=== PATIENT | male | born 1955 | race Caucasian/White ===

== ENCOUNTER 2016-12-30 12:06 | Emergency (ER) | payer BC ==
[2016-12-30 12:20] VITALS: TEMP 99.7
[2016-12-30] MEDS ORDERED: IPRATROPIUM-ALBUTEROL 3 ML NEB INHALATION STA (12:33)
[2016-12-30] MEDS ORDERED: SODIUM CHLORIDE 0.9% 500 ML IV STA (12:33)
[2016-12-30] MEDS ORDERED: SODIUM CHLORIDE 0.9% 1,000 ML IV STA (12:33)
--- NOTE | 2016-12-30 12:47 | ED ---
General Adult HPI - General Chief complaint: Shortness of Breath Stated complaint: SOB Time Seen by Provider: 12/30/16 12:31 Source: patient, RN notes reviewed, old records reviewed Mode of arrival: ambulatory Limitations: no limitations - History of Present Illness Initial comments: This is this is a 61-year-old male with a ER for evaluation, this patient presents for evaluation of cough and congestion. History of asthma. Patient has no exacerbation of asthma for about couple years now. Denies history of smoking no fevers, patient is states he has exertional shortness of breath going on for about 3 days. The patient symptoms are progressive, no breathing treatments at home, no medications at home. Patient seems to be worse when the weather changes. But denies any chest pain. No recent travel history or sick contacts, no recent hospitalizations. - Related Data Home Medications Medication Instructions Recorded Confirmed Aspirin 81 mg PO DAILY 04/17/14 12/30/16 Atorvastatin [Lipitor] 10 mg PO DAILY 04/17/14 12/30/16 Nebivolol HCl [Bystolic] 10 mg PO DAILY 04/17/14 12/30/16 amLODIPine BESYLATE/BENAZEPRIL 1 cap PO DAILY 04/17/14 12/30/16 [Lotrel 5-20 mg Capsule] Previous Rx's Medication Instructions Recorded Albuterol Sulfate [Proair Hfa] 1 - 2 puff INHALATION Q4H PRN #1 12/30/16 inhaler Azithromycin [Zithromax Z-pack] 0 mg PO DIRECTED #1 pack 12/30/16 predniSONE 50 mg PO DAILY #5 tab 12/30/16 Allergies Allergy/AdvReac Type Severity Reaction Status Date / Time No Known Allergies Allergy Verified 12/30/16 13:55 Review of Systems ROS Statement: Those systems with pertinent positive or pertinent negative responses have been documented in the HPI. ROS Other: All systems not noted in ROS Statement are negative. Past Medical History Past Medical History: Asthma, GERD/Reflux, Hyperlipidemia, Hypertension History of Any Multi-Drug Resistant Organisms: None Reported Past Surgical History: Heart Catheterization Additional Past Surgical History / Comment(s): colonoscopy,bronchoscopy Past Anesthesia/Blood Transfusion Reactions: Motion Sickness Past Psychological History: No Psychological Hx Reported Smoking Status: Never smoker Past Alcohol Use History: None Reported Past Drug Use History: None Reported - Past Family History Mother Family Medical History: Cancer Additional Family Medical History / Comment(s): bowel General Exam Limitations: no limitations General appearance: alert, in no apparent distress Head exam: Present: atraumatic, normocephalic, normal inspection Eye exam: Present: normal appearance, PERRL, EOMI. Absent: scleral icterus, conjunctival injection, periorbital swelling ENT exam: Present: normal exam, mucous membranes moist Neck exam: Present: normal inspection. Absent: tenderness, meningismus, lymphadenopathy Respiratory exam: Present: normal lung sounds bilaterally, wheezes, decreased breath sounds. Absent: respiratory distress, rales, rhonchi, stridor Cardiovascular Exam: Present: regular rate, normal rhythm, normal heart sounds. Absent: systolic murmur, diastolic murmur, rubs, gallop, clicks GI/Abdominal exam: Present: soft, normal bowel sounds. Absent: distended, tenderness, guarding, rebound, rigid Extremities exam: Present: normal inspection, full ROM, normal capillary refill. Absent: tenderness, pedal edema, joint swelling, calf tenderness Back exam: Present: normal inspection Neurological exam: Present: alert, oriented X3, CN II-XII intact Psychiatric exam: Present: normal affect, normal mood Skin exam: Present: warm, dry, intact, normal color. Absent: rash Course Vital Signs 12/30/16 12/30/16 12:17 13:43 Temperature 99.7 F H Pulse Rate 79 75 Respiratory 20 16 Rate Blood Pressure 176/83 159/87 O2 Sat by Pulse 99 100 Oximetry - Reevaluation(s) Reevaluation #1: 12/30/16 14:00 At this time patient does appear to have much improved breathing, no distress Reevaluation #2: 12/30/16 14:01 Patient able able to ambulate without shortness of breath EKG Findings - EKG Comments: EKG Findings:: EKG shows normal sinus rhythm rate of 76, SC 132, QRS 88, QTC 447 Medical Decision Making - Medical Decision Making 61 year with asthma exacerbation, no distress, pulse ox normal able any pulse ox is normal chest x-ray is normal patient can be discharged home - Lab Data Result diagrams: 12/30/16 13:00 12/30/16 13:00 Lab Results 12/30/16 12/30/16 12/30/16 Range/Units 13:00 13:00 13:00 WBC 7.8 (3.8-10.6) k/uL RBC 5.61 (4.30-5.90) m/uL Hgb 16.5 (13.0-17.5) gm/dL Hct 48.8 (39.0-53.0) % MCV 87.0 (80.0-100.0) fL MCH 29.5 (25.0-35.0) pg MCHC 33.9 (31.0-37.0) g/dL RDW 13.3 (11.5-15.5) % Plt Count 309 (150-450) k/uL Neutrophils % 77 % Lymphocytes % 15 % Monocytes % 5 % Eosinophils % 1 % Basophils % 1 % Neutrophils # 5.9 (1.3-7.7) k/uL Lymphocytes # 1.2 (1.0-4.8) k/uL Monocytes # 0.4 (0-1.0) k/uL Eosinophils # 0.1 (0-0.7) k/uL Basophils # 0.1 (0-0.2) k/uL PT (9.0-12.0) sec INR (<1.1) APTT (22.0-30.0) sec D-Dimer (<0.60) mg/L FEU Sodium 144 (137-145) mmol/L Potassium 4.9 (3.5-5.1) mmol/L Chloride 107 (98-107) mmol/L Carbon Dioxide 25 (22-30) mmol/L Anion Gap 12 mmol/L BUN 13 (9-20) mg/dL Creatinine 1.02 (0.66-1.25) mg/dL Est GFR (MDRD) Af Amer >60 (>60 ml/min/1.73 sqM) Est GFR (MDRD) Non-Af >60 (>60 ml/min/1.73 sqM) Glucose 100 H (74-99) mg/dL Calcium 9.8 (8.4-10.2) mg/dL Magnesium 2.0 (1.6-2.3) mg/dL Total Bilirubin 1.1 (0.2-1.3) mg/dL AST 33 (17-59) U/L ALT 42 (21-72) U/L Alkaline Phosphatase 69 (38-126) U/L Total Creatine Kinase 58 (55-170) U/L NT-Pro-B Natriuret Pep pg/mL Total Protein 7.4 (6.3-8.2) g/dL Albumin 4.6 (3.5-5.0) g/dL 12/30/16 12/30/16 Range/Units 13:00 13:00 WBC (3.8-10.6) k/uL RBC (4.30-5.90) m/uL Hgb (13.0-17.5) gm/dL Hct (39.0-53.0) % MCV (80.0-100.0) fL MCH (25.0-35.0) pg MCHC (31.0-37.0) g/dL RDW (11.5-15.5) % Plt Count (150-450) k/uL Neutrophils % % Lymphocytes % % Monocytes % % Eosinophils % % Basophils % % Neutrophils # (1.3-7.7) k/uL Lymphocytes # (1.0-4.8) k/uL Monocytes # (0-1.0) k/uL Eosinophils # (0-0.7) k/uL Basophils # (0-0.2) k/uL PT 10.3 (9.0-12.0) sec INR 1.0 (<1.1) APTT 24.8 (22.0-30.0) sec D-Dimer 0.32 (<0.60) mg/L FEU Sodium (137-145) mmol/L Potassium (3.5-5.1) mmol/L Chloride (98-107) mmol/L Carbon Dioxide (22-30) mmol/L Anion Gap mmol/L BUN (9-20) mg/dL Creatinine (0.66-1.25) mg/dL Est GFR (MDRD) Af Amer (>60 ml/min/1.73 sqM) Est GFR (MDRD) Non-Af (>60 ml/min/1.73 sqM) Glucose (74-99) mg/dL Calcium (8.4-10.2) mg/dL Magnesium (1.6-2.3) mg/dL Total Bilirubin (0.2-1.3) mg/dL AST (17-59) U/L ALT (21-72) U/L Alkaline Phosphatase (38-126) U/L Total Creatine Kinase (55-170) U/L NT-Pro-B Natriuret Pep 89 pg/mL Total Protein (6.3-8.2) g/dL Albumin (3.5-5.0) g/dL - Radiology Data Radiology results: report reviewed (Chest x-ray two-view is negative for acute disease), image reviewed Disposition Clinical Impression: Asthma with exacerbation Disposition: HOME SELF-CARE Condition: Good Instructions: Asthma (ED), Acute Bronchitis (ED) Prescriptions: Albuterol Sulfate [Proair Hfa] 1 - 2 puff INHALATION Q4H PRN #1 inhaler PRN Reason: Shortness Of Breath Azithromycin [Zithromax Z-pack] 0 mg PO DIRECTED #1 pack predniSONE 50 mg PO DAILY #5 tab Referrals: Zackery Brennan MD [Primary Care Provider] - 1-2 days
[2016-12-30 12:58] VITALS: RESP 16
[2016-12-30 13:16] LABS: Basophils # (A) 0.1 k/uL (0-0.2); Basophils % (A) 1 %; CH 30.1; CHCM 34.7; Eosinophils # (A) 0.1 k/uL (0-0.7); Eosinophils % (A) 1 %; HCT 48.8 % (39.0-53.0); HDW 2.74; HGB 16.5 gm/dL (13.0-17.5); Luc # (Auto) 0.14; Luc % (Auto) 2; Lymphocytes # (A) 1.2 k/uL (1.0-4.8); Lymphocytes % (A) 15 %; MCH 29.5 pg (25.0-35.0); MCHC 33.9 g/dL (31.0-37.0); Mean Platelet Volume 6.5; Monocytes # (A) 0.4 k/uL (0-1.0); Monocytes % (A) 5 %; Neutrophils # (A) 5.9 k/uL (1.3-7.7); Neutrophils % (A) 77 %; RBC 5.61 m/uL (4.30-5.90); RDW 13.3 % (11.5-15.5); WBC 7.8 k/uL (3.8-10.6); WBC (Perox) 7.72
--- NOTE | 2016-12-30 13:21 | XR ---
EXAMINATION TYPE: XR chest 2V DATE OF EXAM: 12/30/2016 1:18 PM COMPARISON: None HISTORY: 61-year-old male difficulty breathing TECHNIQUE: PA and lateral views FINDINGS: The cardiomediastinal silhouette, aorta, and pulmonary vasculature are within normal limits. Lungs an d pleural spaces are clear. IMPRESSION: No acute cardiopulmonary process.
[2016-12-30 13:25] LABS: ALT 42 U/L (21-72); AST 33 U/L (17-59); Alkaline Phosphatase 69 U/L (38-126); Anion Gap 12 mmol/L; Blood Urea Nitrogen 13 mg/dL (9-20); Calcium 9.8 mg/dL (8.4-10.2); Carbon Dioxide 25 mmol/L (22-30); Chloride 107 mmol/L (98-107); Glucose 100 mg/dL (74-99); Non-African American GFR(MDRD) >60 (>60 ml/min/1.73 sqM); Sodium 144 mmol/L (137-145); Total Bilirubin 1.1 mg/dL (0.2-1.3); Total Protein 7.4 g/dL (6.3-8.2)
[2016-12-30 13:42] LABS: Creatine Kinase 58 U/L (55-170)
[2016-12-30 13:46] LABS: Potassium 4.9 mmol/L (3.5-5.1)
[2016-12-30 13:50] LABS: Partial Thromboplastin Time 24.8 sec (22.0-30.0); Prothrombin Time 10.3 sec (9.0-12.0)
[2016-12-30 13:56] LABS: Creatine Kinase MB 0.5 ng/mL (0.0-2.4); Troponin I <0.012 ng/mL (0.000-0.034)
[2016-12-30] MEDS ORDERED: methylPREDNISolone SOD SUCCI 125 MG/2 ML VIAL IV STA (13:59)
[2016-12-30 14:07] VITALS: BP 147/71
[2016-12-30 14:16] VITALS: PULSE 72
== END 2016-12-30 14:27 | disposition home or self-care (01) ==
LOC: EC 12:06
DX: J45.901 Unspecified asthma with (acute) exacerbation (principal); K21.9 Gastro-esophageal reflux disease without esophagitis; E78.5 Hyperlipidemia, unspecified; I10 Essential (primary) hypertension; Z79.82 Long term (current) use of aspirin; Z79.899 Other long term (current) drug therapy
CPT/HCPCS: 36415; 94640; 93005; 85379; 83880; 80053; 82550; 82553; 83735; 84484; 85025; 85610; 85730; 71020; 99285; 96374; 96361; J2930

== ENCOUNTER → 2017-02-03 | Outpatient (CLI) | payer BC ==
--- NOTE | 2017-02-03 11:31 | CT ---
EXAMINATION TYPE: CT abdomen pelvis w con DATE OF EXAM: 02/03/2017 7:29 AM COMPARISON: NONE HISTORY: constipation, lower abd pain, fatigue CT DLP: 691 mGycm, Automated Exposure Control for Dose Reduction was Utilized. CONTRAST: CT scan of the abdomen and pelvis is performed with oral and with IV Contrast, patient injected with 100 mL of Omnipaque 300. FINDINGS: LUNG BASES: No significant abnormality is appreciated. LIVER/GB: No significant abnormality is appreciated. PANCREAS: No significant abnormality is seen. SPLEEN: No significant abnormality is seen. ADRENALS: No significant abnormality is seen. KIDNEYS: No significant abnormality is seen. BOWEL: Oral contrast reaches level of the left colon. Evaluation of distal colon is suboptimal. There is no suspicious small or large bowel dilatation seen. Normal appearing appendix is seen from cecum. There are some sigmoid colonic diverticula. There is no CT evidence for acute diverticulitis. PROSTATE/SEMINAL VESICLES: Prostate gland is heterogeneous in appearance and upper limits of normal i n size. LYMPH NODES: No greater than 1cm abdominal or pelvic lymph nodes are appreciated. OSSEOUS STRUCTURES: There is multilevel facet arthropathy in the lower lumbar spine. There is disc sp joelle narrowing with vacuum disc phenomenon L3-L4 and L4-L5 levels. OTHER: There is mild calcified atherosclerotic change of aorta and pelvic branch vessels. IMPRESSION: No bowel obstruction is seen. No significant acute finding is seen to account for patient 's clinical symptoms.
== END | disposition home or self-care (01) ==
LOC: RADCTMAIN 07:06
PROVIDERS: ATTEND Internal Medicine
DX: R10.33 Periumbilical pain (principal)
CPT/HCPCS: 74177; Q9967

== ENCOUNTER → 2017-12-07 | Outpatient (CLI) | payer BC ==
[2017-12-07 15:11] LABS: Blood Urea Nitrogen 14 mg/dL (9-20)
== END | disposition home or self-care (01) ==
LOC: LABWHC1 14:47
PROVIDERS: ATTEND Urology
DX: C61 Malignant neoplasm of prostate (principal)
CPT/HCPCS: 36415; 82565; 84520

== ENCOUNTER 2017-12-13 02:12 | Emergency (ER) | payer BC ==
[2017-12-13 02:23] VITALS: RESP 16; TEMP 97.6
[2017-12-13] MEDS ORDERED: cloNIDine HCL 0.1 MG TAB PO STA (02:52)
--- NOTE | 2017-12-13 03:04 | ED ---
Recheck HPI - General Chief Complaint: Recheck/Abnormal Lab/Rx Stated Complaint: Hypertension/SOB Time Seen by Provider: 12/13/17 02:30 Source: patient, RN notes reviewed Mode of arrival: ambulatory Limitations: no limitations - History of Present Illness Initial Comments: This is a 62-year-old male who presents to the emergency department with chief complaint of hypertension. Patient states that around 10:30 PM he began to feel clammy and felt like his blood pressure was elevated. He states that he took his blood pressure and that it was elevated. He states that he does see Dr. Brennan and recently his diastolic was increased to 10 mg twice per day. Patient states that he did feel some ringing in his ears earlier this evening. He denies any symptoms such as chest pain, shortness of breath, abdominal pain, nausea or vomiting, dizziness or headache. Patient does state that earlier he was feeling a bit short of breath that he is asthmatic and that this happens regularly. On presentation to the emergency department, patient's blood pressure is 170/79 and he denies any symptoms. - Related Data Home Medications Medication Instructions Recorded Confirmed Aspirin 81 mg PO DAILY 04/17/14 12/30/16 Atorvastatin [Lipitor] 10 mg PO DAILY 04/17/14 12/30/16 Nebivolol HCl [Bystolic] 10 mg PO DAILY 04/17/14 12/30/16 amLODIPine BESYLATE/BENAZEPRIL 1 cap PO DAILY 04/17/14 12/30/16 [Lotrel 5-20 mg Capsule] Previous Rx's Medication Instructions Recorded Albuterol Sulfate [Proair Hfa] 1 - 2 puff INHALATION Q4H PRN #1 12/30/16 inhaler Azithromycin [Zithromax Z-pack] 0 mg PO DIRECTED #1 pack 12/30/16 predniSONE 50 mg PO DAILY #5 tab 12/30/16 Allergies Allergy/AdvReac Type Severity Reaction Status Date / Time No Known Allergies Allergy Verified 12/30/16 13:55 Review of Systems ROS Statement: Those systems with pertinent positive or pertinent negative responses have been documented in the HPI. ROS Other: All systems not noted in ROS Statement are negative. Past Medical History Past Medical History: Asthma, Cancer, GERD/Reflux, Hyperlipidemia, Hypertension Additional Past Medical History / Comment(s): prostate cancer History of Any Multi-Drug Resistant Organisms: None Reported Past Surgical History: Heart Catheterization Additional Past Surgical History / Comment(s): colonoscopy,bronchoscopy Past Anesthesia/Blood Transfusion Reactions: Motion Sickness Past Psychological History: No Psychological Hx Reported Smoking Status: Never smoker Past Alcohol Use History: Occasional Past Drug Use History: None Reported - Past Family History Mother Family Medical History: Cancer Additional Family Medical History / Comment(s): bowel General Exam - General Exam Comments Initial Comments: General: Awake and alert, well-developed; in no apparent distress. Lying comfortably on ED stretcher. HEENT: Head atraumatic, normocephalic. Pupils are equal, round and reactive to light. Extraocular movements intact. Oropharynx moist without erythema or exudate. Neck: Supple. Normal ROM. Cardiovascular: Regular rate and rhythm. No murmurs, rubs or gallops. Chest symmetrical. Respiratory: Lungs clear to auscultation bilaterally. No wheezes, rales or rhonchi. Normal respiratory effort with no use of accessory muscles. Musculoskeletal: Normal ROM, no tenderness bilateral upper and lower extremities. Ambulating normally. Skin: [place], warm and dry without rashes or lesions. Neurological: Alert and oriented x3. CN II-XII grossly intact. Speech is fluent and answers are appropriate. No focal neuro deficits. Psychiatric: Normal mood and affect. No overt signs of depression or anxiety noted. Limitations: no limitations Course Vital Signs 12/13/17 12/13/17 12/13/17 02:20 03:05 03:31 Temperature 97.6 F Pulse Rate 79 71 Respiratory 16 16 Rate Blood Pressure 170/79 152/71 130/62 O2 Sat by Pulse 98 98 Oximetry Medical Decision Making - Medical Decision Making This is a 62-year-old male who presents to the emergency department with chief complaint of hypertension. Patient denies any shortness of breath or chest pain. Denies any dizziness or headache. EKG revealed a normal sinus rhythm with no evidence for ischemia. On presentation, patient's blood pressure was 170/79. He was given Catapres. Blood pressure was brought down to 130/62. Patient states that he is feeling well and has no complaints. This case was discussed with attending physician, Dr. Rae who was in contact with patient's primary care provider Dr. Brennan. Patient is in no acute distress and will be discharged home. He is to follow-up with Dr. Brennan within 1-2 days. He is in agreement and voices understanding. All questions were answered. - EKG Data EKG Comments: EKG at 3:05:29. Normal sinus rhythm. Ventricular rate 73 bpm, HI interval 180 , QRS duration 102, QT/QTC 384/423. No evidence of ST segment elevation or depression. Disposition Clinical Impression: Hypertension Disposition: HOME SELF-CARE Condition: Good Instructions: Hypertension (ED) Additional Instructions: Please follow up with primary care provider within 1-2 days. Return to emergency department if symptoms should worsen or any concerns arise. Referrals: Zackery Brennan MD [Primary Care Provider] - 1-2 days Time of Disposition: 03:48
[2017-12-13 03:06] VITALS: PULSE 71
[2017-12-13 03:31] VITALS: BP 130/62
== END 2017-12-13 03:56 | disposition home or self-care (01) ==
LOC: EC 02:12
DX: I10 Essential (primary) hypertension (principal); J45.909 Unspecified asthma, uncomplicated; E78.5 Hyperlipidemia, unspecified; Z85.46 Personal history of malignant neoplasm of prostate; Z95.5 Presence of coronary angioplasty implant and graft; Z79.82 Long term (current) use of aspirin; Z79.899 Other long term (current) drug therapy
CPT/HCPCS: 93005; 99283

== ENCOUNTER → 2018-03-01 | Outpatient (CLI) | payer BC ==
--- NOTE | 2018-03-01 12:50 | FL ---
EXAMINATION: Cervical and Thoracic Esophagram DATE OF EXAM: 03/01/2018 CLINICAL INDICATION: 62-year-old male dysphasia, sensation of food intermittently sticking in the thr oat. COMPARISON: None Total Fluoroscopy Time: 123 seconds Total images: 34 FINDINGS: The swallowing mechanism is normal and hypopharyngeal anatomy is preserved. The cervical and thoracic portions have a normal course and caliber and normal motility. The mucosa is normal and no persistent filling defect is encountered. There is a small sliding hiatal hernia. Spontaneous gastroesophageal reflux is noted, severe in degree, extending to the level of the thoraci c inlet while the patient turns from a left-sided decubitus to a supine position. IMPRESSION: Small sliding hiatal hernia with spontaneous severe gastroesophageal reflux to the level of the thora cic inlet.
== END | disposition home or self-care (01) ==
LOC: RADFLMAIN 08:49
PROVIDERS: ATTEND Otolaryngology
DX: K44.9 Diaphragmatic hernia without obstruction or gangrene (principal); K21.9 Gastro-esophageal reflux disease without esophagitis
CPT/HCPCS: 74220

== ENCOUNTER → 2019-09-06 | Outpatient (CLI) | payer BC ==
[2019-09-06 11:14] LABS: Basophils # (A) 0.1 k/uL (0-0.2); Basophils % (A) 1 %; Eosinophils # (A) 0.1 k/uL (0-0.7); Eosinophils % (A) 2 %; Lymphocytes % (A) 17 %; MCH 29.9 pg (25.0-35.0); MCHC 34.1 g/dL (31.0-37.0); MCV 87.8 fL (80.0-100.0); Mean Platelet Volume 5.9; Monocytes # (A) 0.4 k/uL (0-1.0); Monocytes % (A) 7 %; Neutrophils # (A) 4.1 k/uL (1.3-7.7); Neutrophils % (A) 70 %; Platelet Count 309 k/uL (150-450); RBC 5.01 m/uL (4.30-5.90); RDW 13.3 % (11.5-15.5); WBC 5.8 k/uL (3.8-10.6)
[2019-09-06 16:15] LABS: African American GFR (CKD) 73.6 (60.0-200.0); Albumin 4.3 g/dL (3.80-4.90); Albumin/Globulin Ratio 2.87 (1.60-3.17); Calcium 9.5 mg/dL (8.7-10.3); Chol/HDL Ratio 5.03; Globulin 1.5 g/dL (1.6-3.3); Non-African American GFR(CKD) 63.5 (60.0-200.0); Potassium 4.9 mmol/L (3.5-5.5); Total Bilirubin 0.7 mg/dL (0.3-1.2); Total Protein 5.8 g/dL (6.2-8.2)
[2019-09-06 16:27] LABS: T4, Free (Free Thyroxine) 1.1 ng/dL (0.80-1.80)
[2019-09-06 18:50] LABS: Hemoglobin A1C 5.3 % (4.0-6.0)
== END | disposition home or self-care (01) ==
LOC: LABWHC1 10:09
PROVIDERS: ATTEND Internal Medicine Critical Care Medicine
DX: Z00.00 Encounter for general adult medical examination without abnormal findings (principal); C61 Malignant neoplasm of prostate; I10 Essential (primary) hypertension; E78.00 Pure hypercholesterolemia, unspecified; J45.909 Unspecified asthma, uncomplicated
CPT/HCPCS: 36415; 80053; 80061; 82306; 83036; 84439; 84443; 85025

== ENCOUNTER → 2019-09-29 | Outpatient (CLI) | payer BC ==
--- NOTE | 2019-09-30 09:03 | CT ---
EXAMINATION TYPE: CT abdomen pelvis w con DATE OF EXAM: 09/29/2019 COMPARISON: 02/03/2017 HISTORY: Lower abdominal pain. hx of prostate CA CT DLP: 1021.2 mGycm CONTRAST: CT scan of the abdomen and pelvis is performed with Oral Contrast and with IV Contrast, patient injec alexis with 100 mL of Isovue 300. FINDINGS: LUNG BASES-: No visible nodule. No infiltrate. LIVER/GB: No calcified gallstones. There is evidence of mild hepatic steatosis. No space occupying hepatic lesion. Biliary tree is of normal caliber. PANCREAS: No inflammation. No distinct mass. SPLEEN: No splenic enlargement. No lesion seen. ADRENALS: No nodule. No thickening. KIDNEYS/BLADDER: No hydronephrosis. No nephrolithiasis. No distinct renal mass. Urinary bladder g rossly unremarkable. BOWEL: Normal appendix. Normal bowel caliber. No inflammation. GENITAL ORGANS: No gross abnormality. LYMPH NODES: No greater than 1cm abdominal or pelvic lymph nodes are appreciated. AORTA: No significant abnormality. OSSEOUS STRUCTURES: No evidence for bony metastases. Severe degenerative disc disease at L4-5 and L5- S1. Grade 1 anterolisthesis L5 on S1 of 3 mm. OTHER: Small bilateral inguinal hernias fat-containing. IMPRESSION: 1. Mild hepatic steatosis. 2. No evidence for metastatic disease at this time. 3. Degenerative changes lumbar spine as noted above.
== END | disposition home or self-care (01) ==
LOC: RADCTMAIN 15:37
PROVIDERS: ATTEND Internal Medicine Critical Care Medicine
DX: K76.0 Fatty (change of) liver, not elsewhere classified (principal)
CPT/HCPCS: 74177; Q9967

== ENCOUNTER → 2019-11-05 | Outpatient (CLI) | payer BC ==
--- NOTE | 2019-11-07 08:06 | BMR ---
EXAMINATION TYPE: MR breast BILAT wo/w con DATE OF EXAM: 11/05/2019 COMPARISON: NONE HISTORY: R nipple tenderness, Hx of prostate ca CONTRAST: Multiplanar, multisequence images of the breasts were acquired utilizing 9 mL intravenous Gadavist ga dolinium contrast. TECHNIQUE: A series of fat and water weighted images in the long and short axis views of both breasts are obtained in conjunction with dynamic contrast MRI with subtraction technique. Three-dimensional and additional postprocessing imaging is created on independent workstation and reviewed during [facility]. FINDINGS: There is asymmetric flame-shaped fibroglandular tissue in the right breast versus the oppos ite left breast. Left breast is completely fatty replaced. T2-weighted images show no significant cys tic change. Dynamic postcontrast images show mild to moderate asymmetric enhancement of the right-aleja ed fibroglandular tissue. There is benign gradual type enhancement more prominent anteriorly towards level of the nipple. Delayed postcontrast images show no suspicious internal mammary adenopathy bilat erally. Regards to the left breast there is no suspicious skin thickening. No pathologic enhancement is seen. No concerning solid or cystic masses are noted. Chest wall is intact. No suspicious axillary adenopa thy. With regards to the right breast no suspicious skin thickening. No pathologic enhancement. No concern ing axillary adenopathy. Chest wall is intact. IMPRESSION: No MRI evidence for invasive malignancy in either breast. Asymmetric right-sided subareol ar flame-shaped gynecomastia is noted. BI-RADS 2 benign findings right breast. BI-RADS 1 negative study left breast Recommendation: Manage patient's right-sided pain and asymmetric gynecomastia on clinical basis.
== END | disposition home or self-care (01) ==
LOC: RADMRIMAIN 11:32
PROVIDERS: ATTEND Urology
DX: N62 Hypertrophy of breast (principal)
CPT/HCPCS: 77049; C8937

== ENCOUNTER → 2020-03-12 | Outpatient (CLI) | payer BC | END | disposition home or self-care (01) | LOC: LABWHC1 10:06 | PROVIDERS: ATTEND Internal Medicine Critical Care Medicine | DX: C61 Malignant neoplasm of prostate (principal) | CPT/HCPCS: 36415; G0103 ==

== ENCOUNTER → 2021-09-02 | Outpatient (CLI) | payer BC ==
--- NOTE | 2021-09-02 15:53 | XR ---
EXAMINATION TYPE: XR chest 1V, XR abdomen 1V DATE OF EXAM: 09/02/2021 COMPARISON: Chest x-ray dated 12/30/2016 HISTORY: Foreign object TECHNIQUE: Single frontal view of the chest obtained and frontal view of the abdomen is obtained on 2 images. FINDINGS: There is no focal air space opacity, pleural effusion, or pneumothorax seen. The cardiac silhouette size is within normal limits. Metallic foreign body is present over the mid abdomen. The osseous structures are intact., Degenerative disc changes are present in the lumbar spine, there is a slight spinal curvature There is no evident bowel obstruction. IMPRESSION: Foreign body mid abdomen.
== END | disposition home or self-care (01) ==
LOC: RADXRMAIN 10:54
DX: T18.2XXA Foreign body in stomach, initial encounter (principal)
CPT/HCPCS: 71045; 74018

== ENCOUNTER → 2021-10-01 | Outpatient (CLI) | payer BC ==
[2021-10-01 14:54] LABS: Basophils # (A) 0.05 X 10*3/uL (0.00-0.10); Eosinophils # (A) 0.21 X 10*3/uL (0.04-0.35); Eosinophils % (A) 4.2 %; HCT 45.5 % (39.6-50.0); HGB 14.5 g/dL (13.0-17.0); Lymphocytes # (A) 0.85 X 10*3/uL (0.90-5.00); Lymphocytes % (A) 17.1 %; MCH 28.3 pg (27.0-32.0); MCHC 31.9 g/dL (32.0-37.0); MCV 88.7 fL (80.0-97.0); Mean Platelet Volume 9.4 fL (9.5-12.2); Monocytes # (A) 0.53 X 10*3/uL (0.20-1.00); Monocytes % (A) 10.7 %; Neutrophils # (A) 3.29 X 10*3/uL (1.80-7.70); Neutrophils % (A) 66.4 %; Platelet Count 239 X 10*3/uL (140-440); RBC 5.13 X 10*6/uL (4.40-5.60); RDW 13.2 % (11.5-14.5); WBC 4.96 X 10*3/uL (4.50-10.00)
[2021-10-01 16:28] LABS: ALT 38 U/L (10-49); AST 29 U/L (14-35); African American GFR (CKD) 80.7 (60.0-200.0); Albumin 4.1 g/dL (3.8-4.9); Albumin/Globulin Ratio 2.14 (1.60-3.17); Alkaline Phosphatase 68 U/L (41-126); BUN/Creat Ratio 14.91 Ratio (12.00-20.00); Blood Urea Nitrogen 16.4 mg/dL (9.0-27.0); Carbon Dioxide 27.4 mmol/L (20.0-27.5); Chloride 104 mmol/L (96-109); Chol/HDL Ratio 5.47 Ratio; Globulin 1.9 g/dL (1.6-3.3); Glucose 98 mg/dL (70-110); LDL Cholesterol,Calculated 107.3 mg/dL (0.0-131.0); Non-African American GFR(CKD) 69.6 (60.0-200.0); Potassium 4.4 mmol/L (3.5-5.5); Sodium 141 mmol/L (135-145)
== END | disposition home or self-care (01) ==
LOC: LABWHC1 09:40
PROVIDERS: ATTEND Internal Medicine Critical Care Medicine
DX: Z00.00 Encounter for general adult medical examination without abnormal findings (principal); C61 Malignant neoplasm of prostate; I10 Essential (primary) hypertension; E55.9 Vitamin D deficiency, unspecified; E78.00 Pure hypercholesterolemia, unspecified; J45.909 Unspecified asthma, uncomplicated; K21.9 Gastro-esophageal reflux disease without esophagitis
CPT/HCPCS: 36415; 80053; 80061; 82306; 83036; 84439; 84443; 85025

== ENCOUNTER → 2022-04-18 | Outpatient (CLI) | payer BC ==
--- NOTE | 2022-04-18 14:00 | CT ---
CT abdomen and pelvis with oral and IV contrast material. HISTORY: Prostate cancer. COMPARISON: 09/29/2019. TECHNIQUE: Multiple axial images are obtained to the abdomen and pelvis following the uneventful admi nistration of oral and nonionic IV contrast material FINDINGS: The visualized lung bases are clear. The gallbladder is normal and there is no wall thickening, distention, gallstones or pericholecystic biliary ductal dilatation. There is no focal mass or organomegaly involving the liver, pancreas, spleen or adrenal glands. The kidneys excrete contrast promptly and symmetrically is no solid renal mass or hydronephrosis. The re is no retroperitoneal adenopathy or hemorrhage in the caliber of the abdominal aorta is normal. There is no pelvic mass or adenopathy. There are surgical absence of the prostate gland. There is a 10.6 mm somewhat ill-defined sclerotic lesion in the right iliac wing which was seen previ ously and is stable. Remaining osseous structures are intact. IMPRESSION: 1. Stable 10.65 mm sclerotic lesion in the right iliac wing. The possibility of bony metastasis is no t entirely excluded. Correlation with bone scan may be indicated if clinically indicated. 2. No new abnormalities seen.
== END | disposition home or self-care (01) ==
LOC: RADCTMAIN 10:44
PROVIDERS: ATTEND Internal Medicine Critical Care Medicine
DX: C61 Malignant neoplasm of prostate (principal)
CPT/HCPCS: 82565; 84520; 74177; 36415; Q9967 ×2

== ENCOUNTER → 2022-05-22 | Outpatient (CLI) | payer BC ==
--- NOTE | 2022-05-22 16:36 | NM ---
EXAMINATION TYPE: NM bone scan whole body DATE OF EXAM: 05/22/2022 COMPARISON: CT abdomen pelvis 04/18/2022 and 02/03/2017. 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 Images acq uired 3 hours post injection. FINDINGS: No abnormal uptake is identified within the appendicular or axial skeleton to suggest metastatic dise ase. Sclerotic focus seen on prior CT abdomen pelvis does not demonstrate increased radiotracer upta ke. There is increased uptake within the bilateral shoulder, sternoclavicular, and sacroiliac joints , ri ght lateral aspect of L5, consistent with degenerative changes. No other photopenic areas or areas of increased activity are identified. Physiologic radiotracer activity is demonstrated in the kidneys and bladder. IMPRESSION: Right iliac bone sclerotic focus does not demonstrate increased radiotracer and likely represents a b one island. It should be noted that this is stable dating back to 2017 CT.
== END | disposition home or self-care (01) ==
LOC: RADNMMAIN 10:48
PROVIDERS: ATTEND Internal Medicine Critical Care Medicine
DX: M89.9 Disorder of bone, unspecified (principal)
CPT/HCPCS: 78306; A9503

== ENCOUNTER → 2022-12-31 | Outpatient (CLI) | payer BC ==
--- NOTE | 2022-12-31 13:08 | CT ---
EXAMINATION TYPE: CT pelvis w con DATE OF EXAM: 12/31/2022 COMPARISON: 04/18/2020 HISTORY: lower pelvic pain CT DLP: 962 mGycm Automated exposure control for dose reduction was used. CONTRAST: CT scan of the abdomen pelvis is performed with IV Contrast, patient injected with 70 mL of Isovue 30 0. FINDINGS- There is a stable 11 mm sclerotic lesion involving the right iliac bone. There also is a lucent lesio n involving the right iliac bone measuring 1.2 cm also stable. Severe arthropathy of the right hip li pancho accounts for the cystic and mixed sclerotic changes involving anterior column of the right aceta bulum which is also stable. Similar findings are noted on the left with cystic change involving the r obed of the acetabulum. Bladder has a normal appearance. Diverticulosis of the colon. No pathologic adenopathy. There is veronica re degenerative disc disease and facet arthropathy lower lumbar spine with a spina bifida occulta at the L5-S1 level stable. Bilateral fat-containing inguinal hernia. No pathologic adenopathy or free air. Visualized aorta is o f normal caliber with atherosclerotic changes. IMPRESSION- 1. Right iliac sclerotic lesion stable and without significant increased uptake by previous bone scan therefore most typical of bone island. 2. Lucent lesion involving the right iliac bone is nonspecific but stable. 3. Bilateral hip arthropathy with cystic changes involving the acetabulum most likely on the basis of geode formation and related to severe arthropathy. 4. Severe degenerative disc disease lower lumbar spine.
== END | disposition home or self-care (01) ==
LOC: RADCTMAIN 10:45
PROVIDERS: ATTEND Internal Medicine Critical Care Medicine
DX: C61 Malignant neoplasm of prostate (principal); M16.0 Bilateral primary osteoarthritis of hip; M51.36 Other intervertebral disc degeneration, lumbar region; M89.8X8 Other specified disorders of bone, other site
CPT/HCPCS: 82565; 84520; 72193; 36415; Q9967

== ENCOUNTER → 2023-01-12 | Outpatient (CLI) | payer BC ==
[2023-01-13 05:21] LABS: Basophils % (A) 1.4 %; Eosinophils # (A) 0.13 X 10*3/uL (0.04-0.35); Eosinophils % (A) 1.9 %; HCT 47.5 % (39.6-50.0); HGB 15.5 g/dL (13.0-17.0); Immature Grans, Automated 0.4 %; Lymphocytes # (A) 0.98 X 10*3/uL (0.90-5.00); Lymphocytes % (A) 14.2 %; MCH 28.3 pg (27.0-32.0); MCHC 32.6 g/dL (32.0-37.0); MCV 86.7 fL (80.0-97.0); Mean Platelet Volume 9.6 fL (9.5-12.2); Monocytes # (A) 0.59 X 10*3/uL (0.20-1.00); Monocytes % (A) 8.6 %; NRBC Per 100 WBC 0 /100 WBCS (0.0-0.0); Neutrophils # (A) 5.07 X 10*3/uL (1.80-7.70); Neutrophils % (A) 73.5 %; Platelet Count 240 X 10*3/uL (140-440); RBC 5.48 X 10*6/uL (4.40-5.60); RDW 13.2 % (11.5-14.5)
[2023-01-13 06:13] LABS: ALT 47 U/L (10-49); AST 35 U/L (14-35); African American GFR (CKD) 72.1 (60.0-200.0); Albumin 4.2 g/dL (3.8-4.9); Alkaline Phosphatase 72 U/L (41-126); BUN/Creat Ratio 10.67 Ratio (12.00-20.00); Blood Urea Nitrogen 12.8 mg/dL (9.0-27.0); Calcium 9.6 mg/dL (8.7-10.3); Carbon Dioxide 28.3 mmol/L (20.0-27.5); Chloride 101 mmol/L (96-109); Globulin 2.1 g/dL (1.6-3.3); Glucose 87 mg/dL (70-110); Non-African American GFR(CKD) 62.2 (60.0-200.0); Potassium 4.6 mmol/L (3.5-5.5); Sodium 141 mmol/L (135-145); Total Protein 6.3 g/dL (6.2-8.2)
[2023-01-13 06:14] LABS: Chol/HDL Ratio 5.01 Ratio; LDL Cholesterol,Calculated 78.7 mg/dL (0.0-131.0); PSA Annual Screen <0.014 ng/mL (0.000-4.000)
== END | disposition home or self-care (01) ==
LOC: LABWHC1 14:01
PROVIDERS: ATTEND Internal Medicine Critical Care Medicine
DX: Z00.00 Encounter for general adult medical examination without abnormal findings (principal); Z12.5 Encounter for screening for malignant neoplasm of prostate; I10 Essential (primary) hypertension; E78.00 Pure hypercholesterolemia, unspecified; E55.9 Vitamin D deficiency, unspecified; R53.83 Other fatigue; R05.9 Cough, unspecified
CPT/HCPCS: 84439; 80061; 80053; 84443; 85025; 82306; 83036; 36415; G0103

== ENCOUNTER 2023-02-07 08:53 | Emergency (ER) | payer BC ==
[2023-02-07 09:09] VITALS: RESP 18; TEMP 97.9
[2023-02-07] MEDS ORDERED: SODIUM CHLORIDE 0.9% 1,000 ML IV STA (09:22)
[2023-02-07] MEDS ORDERED: MECLIZINE 12.5 MG TAB PO STA (09:22)
[2023-02-07] MEDS ORDERED: LORazepam 2 MG/ML INJ IV STA (09:22)
--- NOTE | 2023-02-07 09:38 | ED ---
General Adult HPI - General Chief complaint: Dizziness Stated complaint: Vertigo Time Seen by Provider: 02/07/23 09:12 Source: patient, RN notes reviewed, old records reviewed Mode of arrival: ambulatory Limitations: no limitations - History of Present Illness Initial comments: 67-year-old male presents with sudden onset dizziness, sensation that the room is spinning. He's had nausea and dry heaving. He denies any headache. Denies chest pain or palpitations. Denies any preceding symptoms, states that he went to bed in his usual state of health. He denies focal numbness or weakness. - Related Data Home Medications Medication Instructions Recorded Confirmed Aspirin 81 mg PO DAILY 04/17/14 12/30/16 Atorvastatin [Lipitor] 10 mg PO DAILY 04/17/14 12/30/16 Nebivolol HCl [Bystolic] 10 mg PO DAILY 04/17/14 12/30/16 amLODIPine BESYLATE/BENAZEPRIL 1 cap PO DAILY 04/17/14 12/30/16 [Lotrel 5-20 mg Capsule] Previous Rx's Medication Instructions Recorded Albuterol Sulfate [Proair Hfa] 1 - 2 puff INHALATION Q4H PRN #1 12/30/16 inhaler Azithromycin [Zithromax Z-pack (6 0 mg PO DIRECTED #1 pack 12/30/16 tabs)] predniSONE 50 mg PO DAILY #5 tab 12/30/16 Meclizine [Antivert] 25 mg PO TID PRN #30 tab 02/07/23 Allergies Allergy/AdvReac Type Severity Reaction Status Date / Time No Known Allergies Allergy Verified 02/07/23 09:09 Review of Systems ROS Statement: Those systems with pertinent positive or pertinent negative responses have been documented in the HPI. ROS Other: All systems not noted in ROS Statement are negative. Past Medical History Past Medical History: Asthma, Cancer, GERD/Reflux, Hyperlipidemia, Hypertension Additional Past Medical History / Comment(s): prostate cancer History of Any Multi-Drug Resistant Organisms: None Reported Past Surgical History: Heart Catheterization Additional Past Surgical History / Comment(s): colonoscopy,bronchoscopy Past Anesthesia/Blood Transfusion Reactions: Motion Sickness Past Psychological History: No Psychological Hx Reported Smoking Status: Never smoker Past Alcohol Use History: Occasional Past Drug Use History: None Reported - Past Family History Mother Family Medical History: Cancer Additional Family Medical History / Comment(s): bowel General Exam Limitations: no limitations General appearance: alert, in no apparent distress Head exam: Present: atraumatic, normocephalic Eye exam: Present: normal appearance, PERRL. Absent: nystagmus ENT exam: Present: mucous membranes dry Neck exam: Present: normal inspection. Absent: tenderness, meningismus Respiratory exam: Present: normal lung sounds bilaterally. Absent: respiratory distress, wheezes Cardiovascular Exam: Present: regular rate, normal rhythm GI/Abdominal exam: Present: soft. Absent: distended, tenderness, guarding Extremities exam: Present: normal inspection, normal capillary refill. Absent: pedal edema Neurological exam: Present: alert, oriented X3, CN II-XII intact, other (Normal finger to nose bilaterally, normal [id number] bilaterally). Absent: motor sensory deficit Psychiatric exam: Present: normal affect, normal mood Skin exam: Present: warm, dry, intact. Absent: cyanosis, diaphoretic Course Vital Signs 02/07/23 02/07/23 09:07 11:08 Temperature 97.9 F Pulse Rate 78 75 Respiratory 18 18 Rate Blood Pressure 156/79 143/61 O2 Sat by Pulse 99 96 Oximetry EKG Findings - EKG Comments: EKG Findings:: EKG sinus rhythm rate of 73 baseline artifact limiting assessment. This is a regular narrow complex rhythm rate of 73 NJ interval 175, QRS duration [address] segment elevation. Medical Decision Making - Medical Decision Making 67-year-old male with sudden onset dizziness. Was pt. sent in by a medical professional or institution (, PA, MECHANICAL LABORATORY TECHNICIAN, urgent care, hospital, or detention...) When possible be specific @ -No Did you speak to anyone other than the patient for history (EMS, parent, family, police, friend...)? What history was obtained from this source @ -No Did you review nursing and triage notes (agree or disagree)? Why? @ -I reviewed and agree with nursing and triage notes Were old charts reviewed (outside hosp., previous admission, EMS record, old EKG, old radiological studies, urgent care reports/EKG's, detention records)? Report findings @ -No old charts were reviewed Differential Diagnosis (chest pain, altered mental status, abdominal pain women, abdominal pain men, vaginal bleeding, weakness, fever, dyspnea, syncope, headache, dizziness, GI bleed, back pain, seizure, CVA, palpatations, mental health, musculoskeletal)? @ CVA, dehydration, vertigo, arrhythmia EKG interpreted by me (3pts min.). @ -As above X-rays interpreted by me (1pt min.). @ -None done CT interpreted by me (1pt min.). @ CT brain without contrast and CT angiography performed, agree with radiologist interpretation, no acute findings. U/S interpreted by me (1pt. min.). @ -None done What testing was considered but not performed or refused? (CT, X-rays, U/S, labs)? Why? @ -None What meds were considered but not given or refused? Why? @ -None Did you discuss the management of the patient with other professionals (professionals i.e. , PA, MECHANICAL LABORATORY TECHNICIAN, lab, RT, psych nurse, hospice social worker, heel compressor, teacher, community arts officer, case briefer)? Give summary @ -No Was smoking cessation discussed for >3mins.? @ -No Was critical care preformed (if so, how long)? @ -No Were there social determinants of health that impacted care today? How? (Homelessness, low income, unemployed, alcoholism, drug addiction, transportation, low edu. Level, literacy, decrease access to med. care, long term, rehab)? @ -No Was there de-escalation of care discussed even if they declined (Discuss DNR or withdrawal of care, Hospice)? DNR status @ -No What co-morbidities impacted this encounter? (DM, HTN, Smoking, COPD, CAD, Cancer, CVA, ARF, Chemo, Hep., AIDS, mental health diagnosis, sleep apnea, morbid obesity)? @ Hypertension Was patient admitted / discharged? Hospital course, mention meds given and route, prescriptions, significant lab abnormalities, going to OR and other pertinent info. @ 67-year-old male with sudden onset dizziness. He has no nystagmus, no ataxia, no limb weakness or numbness. NIH of 0. I did perform workup to rule out CVA including head CT, CT angiography. Laboratory testing. His testing is unremarkable emergency department. He is reassessed with stable vitals. He feels significantly better without vomiting. He is willing to be discharged home and monitor symptoms closely. He will return with any worsening or changing symptoms. Undiagnosed new problem with uncertain prognosis? @ -No Drug Therapy requiring intensive monitoring for toxicity (Heparin, Nitro, Insulin, Cardizem)? @ -No Were any procedures done? @ -No Diagnosis/symptom? @ Vertigo Acute, or Chronic, or Acute on Chronic? @ Acute Uncomplicated (without systemic symptoms) or Complicated (systemic symptoms)? @ -Uncomplicated Side effects of treatment? @ -No Exacerbation, Progression, or Severe Exacerbation? @ -No Poses a threat to life or bodily function? How? (Chest pain, USA, CO, pneumonia, PE, COPD, DKA, ARF, appy, cholecystitis, CVA, Diverticulitis, Homicidal, Suicidal, threat to staff... and all critical care pts) @ -No - Lab Data Result diagrams: 02/07/23 09:49 02/07/23 09:49 Lab Results 02/07/23 02/07/23 02/07/23 Range/Units 09:49 09:49 09:49 WBC 8.4 (3.8-10.6) k/uL RBC 5.71 (4.30-5.90) m/uL Hgb 16.8 (13.0-17.5) gm/dL Hct 47.3 (39.0-53.0) % MCV 82.9 (80.0-100.0) fL MCH 29.5 (25.0-35.0) pg MCHC 35.6 (31.0-37.0) g/dL RDW 14.0 (11.5-15.5) % Plt Count 254 (150-450) k/uL MPV 7.1 Neutrophils % 89 % Lymphocytes % 6 % Monocytes % 3 % Eosinophils % 1 % Basophils % 0 % Neutrophils # 7.5 (1.3-7.7) k/uL Lymphocytes # 0.5 L (1.0-4.8) k/uL Monocytes # 0.3 (0-1.0) k/uL Eosinophils # 0.1 (0-0.7) k/uL Basophils # 0.0 (0-0.2) k/uL PT 10.5 (9.0-12.0) sec INR 1.0 (<1.2) APTT 23.2 (22.0-30.0) sec Sodium 139 (137-145) mmol/L Potassium 3.8 (3.5-5.1) mmol/L Chloride 103 (98-107) mmol/L Carbon Dioxide 22 (22-30) mmol/L Anion Gap 14 mmol/L BUN 20 (9-20) mg/dL Creatinine 1.03 (0.66-1.25) mg/dL Est GFR (CKD-EPI)AfAm 87 (>60 ml/min/1.73 sqM) Est GFR (CKD-EPI)NonAf 75 (>60 ml/min/1.73 sqM) Glucose 128 H (74-99) mg/dL Calcium 9.6 (8.4-10.2) mg/dL Total Bilirubin 0.7 (0.2-1.3) mg/dL AST 36 (17-59) U/L ALT 41 (4-49) U/L Alkaline Phosphatase 78 (38-126) U/L Troponin I (0.000-0.034) ng/mL Total Protein 7.1 (6.3-8.2) g/dL Albumin 4.5 (3.5-5.0) g/dL Urine Color Urine Appearance (Clear) Urine pH (5.0-8.0) Ur Specific Irving (1.001-1.035) Urine Protein (Negative) Urine Glucose (UA) (Negative) Urine Ketones (Negative) Urine Blood (Negative) Urine Nitrite (Negative) Urine Bilirubin (Negative) Urine Urobilinogen (<2.0) mg/dL Ur Leukocyte Esterase (Negative) 02/07/23 02/07/23 Range/Units 09:49 11:03 WBC (3.8-10.6) k/uL RBC (4.30-5.90) m/uL Hgb (13.0-17.5) gm/dL Hct (39.0-53.0) % MCV (80.0-100.0) fL MCH (25.0-35.0) pg MCHC (31.0-37.0) g/dL RDW (11.5-15.5) % Plt Count (150-450) k/uL MPV Neutrophils % % Lymphocytes % % Monocytes % % Eosinophils % % Basophils % % Neutrophils # (1.3-7.7) k/uL Lymphocytes # (1.0-4.8) k/uL Monocytes # (0-1.0) k/uL Eosinophils # (0-0.7) k/uL Basophils # (0-0.2) k/uL PT (9.0-12.0) sec INR (<1.2) APTT (22.0-30.0) sec Sodium (137-145) mmol/L Potassium (3.5-5.1) mmol/L Chloride (98-107) mmol/L Carbon Dioxide (22-30) mmol/L Anion Gap mmol/L BUN (9-20) mg/dL Creatinine (0.66-1.25) mg/dL Est GFR (CKD-EPI)AfAm (>60 ml/min/1.73 sqM) Est GFR (CKD-EPI)NonAf (>60 ml/min/1.73 sqM) Glucose (74-99) mg/dL Calcium (8.4-10.2) mg/dL Total Bilirubin (0.2-1.3) mg/dL AST (17-59) U/L ALT (4-49) U/L Alkaline Phosphatase (38-126) U/L Troponin I <0.012 (0.000-0.034) ng/mL Total Protein (6.3-8.2) g/dL Albumin (3.5-5.0) g/dL Urine Color Light Yellow Urine Appearance Clear (Clear) Urine pH 5.0 (5.0-8.0) Ur Specific Irving 1.024 (1.001-1.035) Urine Protein Negative (Negative) Urine Glucose (UA) Negative (Negative) Urine Ketones Negative (Negative) Urine Blood Negative (Negative) Urine Nitrite Negative (Negative) Urine Bilirubin Negative (Negative) Urine Urobilinogen <2.0 (<2.0) mg/dL Ur Leukocyte Esterase Negative (Negative) Disposition Clinical Impression: Vertigo Disposition: HOME SELF-CARE Condition: Fair Instructions (If sedation given, give patient instructions): Dizziness (ED) Prescriptions: Meclizine [Antivert] 25 mg PO TID PRN #30 tab PRN Reason: Vertigo Is patient prescribed a controlled substance at d/c from ED?: No Referrals: Piyush Irizarry DO [Primary Care Provider] - 1-2 days Time of Disposition: 12:10
[2023-02-07 10:00] LABS: Basophils % (A) 0 %; Eosinophils # (A) 0.1 k/uL (0-0.7); Eosinophils % (A) 1 %; HCT 47.3 % (39.0-53.0); HGB 16.8 gm/dL (13.0-17.5); Lymphocytes # (A) 0.5 k/uL (1.0-4.8); Lymphocytes % (A) 6 %; MCH 29.5 pg (25.0-35.0); MCHC 35.6 g/dL (31.0-37.0); MCV 82.9 fL (80.0-100.0); Mean Platelet Volume 7.1; Monocytes # (A) 0.3 k/uL (0-1.0); Monocytes % (A) 3 %; Neutrophils # (A) 7.5 k/uL (1.3-7.7); Neutrophils % (A) 89 %; Platelet Count 254 k/uL (150-450); RBC 5.71 m/uL (4.30-5.90); WBC 8.4 k/uL (3.8-10.6)
[2023-02-07 10:10] LABS: Albumin 4.5 g/dL (3.5-5.0); Calcium 9.6 mg/dL (8.4-10.2); Partial Thromboplastin Time 23.2 sec (22.0-30.0); Potassium 3.8 mmol/L (3.5-5.1); Prothrombin Time 10.5 sec (9.0-12.0); Total Bilirubin 0.7 mg/dL (0.2-1.3); Total Protein 7.1 g/dL (6.3-8.2)
--- NOTE | 2023-02-07 10:40 | CT ---
EXAMINATION TYPE: CT brain wo con DATE OF EXAM: 02/07/2023 COMPARISON: None HISTORY: Dizziness CT DLP: 1102.3 mGycm Automated exposure control for dose reduction was used. FINDINGS: The ventricles, basal cisterns and sulci over the convexities are within normal limits for the patien t's age. There is no mass effect or shift of midline structures. No abnormal density is seen throughout the brain parenchyma and there is no acute intra or extra-axia l hemorrhage. The posterior fossa including the brainstem, fourth ventricle and cerebellar pontine angles appear gr ossly normal. Intraorbital contents appear normal and symmetric. Visualized paranasal sinuses and mastoid air cells are well aerated. The calvarium is intact IMPRESSION: No significant abnormality seen. IMPRESSION:
--- NOTE | 2023-02-07 11:26 | CT ---
EXAMINATION TYPE: CT angio head neck CT DLP: 615 mGycm, Automated exposure control for dose reduction was used. DATE OF EXAM: 02/07/2023 10:53 AM COMPARISON: CT brain 02/07/2023. CLINICAL INDICATION:Male, 67 years old with history of sudden onset vertigo; , Dizziness TECHNIQUE: Axially acquired helical CT angiogram of the head and neck was obtained with contrast. Axi al images are supplemented with 3D reconstructions which [facility] NASCET criteria used. Contrast used:65 mL of Isovue 370 with IV Contrast, Oral contrast used: None. FINDINGS: CTA HEAD: No evidence of acute intracranial hemorrhage, mass effect, or midline shift. The ventricles, sulci, a nd cisterns are unremarkable. The visualized portions of the internal carotid arteries, middle cerebral arteries, anterior cerebral arteries, and posterior cerebral arteries are patent. origin of the right posterior cerebral artery. The basilar and vertebral arteries are patent. The left vertebral artery is dominant. CTA NECK: Right Carotid System: The common carotid artery and external carotid artery are patent. The carotid bifurcation demonstrate s no evidence of hemodynamically significant stenosis. The remaining portions of the internal carotid artery demonstrate normal size without significant narrowing. Left Carotid System: The common carotid artery and external carotid artery are patent. The carotid bifurcation demonstrate s no evidence of hemodynamically significant stenosis. The remaining portions of the internal carotid artery demonstrate normal size without significant narrowing. Vertebral arteries are patent without evidence hemodynamically significant stenosis. The left vertebr al artery is dominant. There is a three-vessel aortic arch. The origins of the great vessels are patent. No evidence of hemo dynamically significant stenosis. Upper thorax: No acute process seen within the upper thorax. IMPRESSION: 1. No evidence of dissection of the cervical internal carotid arteries or vertebral arteries or any e vidence of significant stenosis at the carotid bifurcations. 2. No evidence of intracranial high-grade stenosis or intracranial aneurysm.
[2023-02-07 11:35] LABS: Appearance,Urine Clear (Clear); Bilirubin,Urine Negative (Negative); Blood,Urine Negative (Negative); Color,Urine Light Yellow; Glucose,Urine (UA) Negative (Negative); Ketones,Urine Negative (Negative); Leukocyte Esterase,Urine Negative (Negative); Nitrite,Urine Negative (Negative); Protein,Urine Negative (Negative); Specific Gravity,Urine 1.024 (1.001-1.035); Urobilinogen,Urine <2.0 mg/dL (<2.0)
[2023-02-07 12:19] VITALS: BP 137/81; PULSE 70
== END 2023-02-07 12:18 | disposition home or self-care (01) ==
LOC: EC 08:53
DX: R42 Dizziness and giddiness (principal); I10 Essential (primary) hypertension; E78.5 Hyperlipidemia, unspecified; J45.909 Unspecified asthma, uncomplicated; K21.9 Gastro-esophageal reflux disease without esophagitis; Z79.82 Long term (current) use of aspirin; Z79.899 Other long term (current) drug therapy
CPT/HCPCS: 96361 ×3; 96374 ×2; 99284 ×2; 36415; 93005; 80053; 84484; 85025; 85610; 85730; 81003; 70496; 70450; 70498; J2060; Q9967

== ENCOUNTER → 2023-11-14 | Outpatient (CLI) | payer BC ==
[2023-11-14 13:23] LABS: Basophils # (A) 0.09 X 10*3/uL (0.00-0.10); Basophils % (A) 1.4 %; Eosinophils # (A) 0.17 X 10*3/uL (0.04-0.35); Eosinophils % (A) 2.7 %; HCT 48.1 % (39.6-50.0); HGB 16.1 g/dL (13.0-17.0); Lymphocytes # (A) 1.16 X 10*3/uL (0.90-5.00); Lymphocytes % (A) 18.6 %; MCHC 33.5 g/dL (32.0-37.0); MCV 86.7 FL (80.0-97.0); NRBC Per 100 WBC 0 X 10*3/uL (0.00-0.01); Neutrophils # (A) 4.32 X 10*3/uL (1.80-7.70); Neutrophils % (A) 69.1 %; Platelet Count 227 X 10*3/uL (140-440); RBC 5.55 X 10*6/uL (4.40-5.60); RDW 12.8 % (11.5-14.5); WBC 6.25 X 10*3/uL (4.50-10.00)
== END | disposition home or self-care (01) ==
LOC: LABWHC1 08:21
PROVIDERS: ATTEND Internal Medicine
DX: K62.5 Hemorrhage of anus and rectum (principal)
CPT/HCPCS: 36415; 85025

== ENCOUNTER → 2024-05-27 | Outpatient (CLI) | payer BC | END | disposition home or self-care (01) | LOC: LABWHC1 12:50 | PROVIDERS: ATTEND Internal Medicine Critical Care Medicine | DX: Z00.00 Encounter for general adult medical examination without abnormal findings (principal); Z12.5 Encounter for screening for malignant neoplasm of prostate; I10 Essential (primary) hypertension; E78.00 Pure hypercholesterolemia, unspecified; J45.909 Unspecified asthma, uncomplicated; K21.9 Gastro-esophageal reflux disease without esophagitis | CPT/HCPCS: 84439; 80061; 80053; 84443; 85025; 83036; 36415; G0103 ==

== ENCOUNTER → 2024-08-25 | Outpatient (CLI) | payer BC ==
[2024-08-25 12:30] LABS: African American GFR (CKD) 74 (>60 ml/min/1.73 sqM); Blood Urea Nitrogen 17 mg/dL (9-20); Non-African American GFR(CKD) 64 (>60 ml/min/1.73 sqM)
--- NOTE | 2024-08-25 16:50 | CT ---
EXAMINATION TYPE: CT abdomen pelvis w con CT DLP: 1652 mGycm, Automated exposure control for dose reduction was used. DATE OF EXAM: 08/25/2024 2:07 PM COMPARISON: CT pelvis 12/31/2022, CT abdomen and pelvis 04/18/2022, 09/29/2019 CLINICAL INDICATION:Male, 69 years old with history of K57.92 DVTRCLI OF INTEST, PART UNSP; diverticu litis TECHNIQUE: Standard CT of the abdomen and pelvis following the administration of 100 cc of Isovue 3 00 IV contrast material and oral contrast. Coronal and sagittal reformats were performed. FINDINGS: LOWER CHEST: Posterior dependent subsegmental atelectasis is noted. ABDOMEN LIVER: Diffusely hypoattenuating parenchyma. No focal lesion identified. GALLBLADDER AND BILE DUCTS: Unremarkable. PANCREAS: Unremarkable. SPLEEN: Unremarkable. ADRENAL GLANDS: Unremarkable. KIDNEYS AND URETERS: No evidence of hydronephrosis or renal calculus. The kidneys enhance symmetrical ly. Contrast is demonstrated within both collecting systems on delayed phase. Left renal sinus cyst. PELVIS BLADDER: Incompletely distended but grossly unremarkable. REPRODUCTIVE: Prostate gland is surgically absent. No suspicious soft tissue within the surgical bed. ABDOMEN & PELVIS STOMACH AND BOWEL: Stomach and duodenum are unremarkable. Enteric contrast reaches the rectum. Few sc attered distal colonic diverticula without evidence for acute diverticulitis. No focal bowel wall thi ckening or surrounding inflammatory changes. The appendix is within normal limits. No evidence of bow el obstruction. PERITONEUM: No evidence of pneumoperitoneum or free fluid. VASCULATURE: Mild atherosclerotic calcifications are present throughout the abdominal aorta and its b ranches. No evidence of aortic aneurysm. MUSCULOSKELETAL: No acute osseous abnormalities. Stable sclerotic 1.1 cm lesion within the right kendall c bone. Report is bone island. Stable lucent lesion within the right iliac bone measuring up to 1.2 c m. Bilateral hip osteoarthritic changes with right greater than left. Severe degenerative disease and facet arthropathy lower lumbar spine with a spina bifida occulta at L5-S1 which is stable. LYMPH NODES: No evidence for lymphadenopathy. SOFT TISSUE/ABDOMINAL WALL: Tiny fat filled umbilical hernia with small bowel abutting the opening. B ilateral fat-containing inguinal hernia. IMPRESSION: 1. No CT evidence for acute abdominal process. No evidence for diverticulitis. 2. Hepatic steatosis. [facility], , 08/25/2024 4:47 PM
== END | disposition home or self-care (01) ==
LOC: RADCTMAIN 11:49
PROVIDERS: ATTEND Internal Medicine Critical Care Medicine
DX: K57.30 Diverticulosis of large intestine without perforation or abscess without bleeding (principal); K76.0 Fatty (change of) liver, not elsewhere classified; K40.20 Bilateral inguinal hernia, without obstruction or gangrene, not specified as recurrent; Q76.0 Spina bifida occulta; M47.817 Spondylosis without myelopathy or radiculopathy, lumbosacral region; M16.0 Bilateral primary osteoarthritis of hip; I70.0 Atherosclerosis of aorta; J98.11 Atelectasis
CPT/HCPCS: 82565; 84520; 74177; 36415; Q9967